=== PATIENT | female | born 2000 | race Caucasian/White ===

== ENCOUNTER 2022-02-24 23:27 | Emergency (ER) | payer OTHER ==
[~2022-02-24] VITALS: Ht 167.6 cm; Wt 60.0 kg
[2022-02-25 01:08] LABS: BASOPHILS % 0.6 % (0.0-2.0); EOSINOPHILS % 3.2 % (0.0-5.0); HEMATOCRIT. 37.3 % (36.0-48.0); HEMOGLOBIN. 12.3 g/dL (12.0-16.0); LYMPHOCYTES % 38.8 % (20.0-50.0); MEAN CORPUSCULAR HEMOGLOBIN 30.2 pg (28.0-32.0); MEAN CORPUSCULAR VOLUME 91.5 fL (81.0-99.0); MONOCYTES % 5.9 % (2.0-8.0); NEUTROPHILS % 51.5 % (40.0-76.0); PLATELET 303 x1000/uL (130-400); RED BLOOD CELL COUNT 4.08 mill/uL (4.2-5.4); RED CELL DISTRIBUTION WIDTH 13.7 % (11.6-14.6)
[2022-02-25 01:09] LABS: CHLORIDE 114 mEq/L (98-107)
[2022-02-25 01:15] LABS: ETHANOL BLOOD 284 mg/dL
[2022-02-25 01:22] LABS: *AMPHETAMINES SCREEN URINE NEGATIVE (NEGATIVE); *BARBITURATES SCREEN URINE NEGATIVE (NEGATIVE); *BENZODIAZEPINES SCREEN URINE NEGATIVE (NEGATIVE); *COCAINE SCREEN URINE NEGATIVE (NEGATIVE); CANNABINOID URINE SCREEN NEGATIVE (NEGATIVE); METHADONE URINE SCREEN NEGATIVE (NEGATIVE); OPIATES URINE SCREEN NEGATIVE (NEGATIVE); PHENCYCLIDINE URINE SCREEN NEGATIVE (NEGATIVE)
[2022-02-25 04:40] VITALS: BP 112/77
== END 2022-02-25 05:00 | disposition home or self-care (01) ==
LOC: ER 23:27
DX: F10.129 Alcohol abuse with intoxication, unspecified (principal); Y90.8 Blood alcohol level of 240 mg/100 ml or more; R41.82 Altered mental status, unspecified
CPT/HCPCS: 36415; 80048; 80305; 80307; 80320; 80329; 82962; 85025; 99285; G0480